=== PATIENT | female | born 1995 | race Two or more races ===

== ENCOUNTER 2020-09-14 16:16 | Emergency (ER) | payer BC, OTHER ==
[~2020-09-14] VITALS: Ht 160 cm; Wt 92.8 kg
--- NOTE | 2020-09-14 16:53 | NUR ---
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
[2020-09-14 17:55] LABS: BASOPHILS % (AUTO) 0 % (0-1); EOSINOPHILS % (AUTO) 0 % (1-7); LYMPHOCYTES % (AUTO) 18 % (22-44); MEAN CORPUSCULAR HEMOGLOBIN 30.8 pg (27.0-34.8); MEAN CORPUSCULAR HGB CONC 34.2 g/dL (32.4-35.8); MEAN PLATELET VOLUME 8.3 fL (7.4-10.4); MONOCYTES % (AUTO) 7 % (2-9); NEUTROPHILS % (AUTO) 75 % (42-75); PLATELET COUNT 271 x10^3/uL (130-400); RED BLOOD COUNT 4.03 x10^6/uL (3.82-5.3)
[2020-09-14 18:20] VITALS: BP 105/76
[2020-09-14 18:34] LABS: MICROSCOPIC AUTO
== END 2020-09-14 19:38 | disposition home or self-care (01) ==
LOC: ED 18:39
DX: O20.0 Threatened abortion (principal); N92.0 Excessive and frequent menstruation with regular cycle; Z3A.14 14 weeks gestation of pregnancy
CPT/HCPCS: 36415; 76815; 81001; 84702; 85025; 86901; 99284